=== PATIENT | male | born 1950 | race Caucasian/White ===

== ENCOUNTER 2017-03-29 18:41 | Observation (INO) | payer BC, OTHER ==
[~2017-03-29] VITALS: Ht 175.3 cm; Wt 73.6 kg
[~2017-03-29 18:41] MED LIST: ASPCH81X PO; CYAN100020 PO; MULT-506 PO; OMEG10007 PO
[2017-03-29 20:06] LABS: BASO % 0.3 %; BASO ABS # 0.02 K/uL (0-0.2); COMPLETE YES; HEMATOCRIT 38.7 % (42-52); IG% 0.3 %; LYMPH ABS # 1.97 K/uL (1.2-3.4); MEAN CELL VOLUME 92.1 fL (80-100); MEAN CORPUSCULAR HEMOGLOBIN 32.4 pg (25-34); MEAN CORPUSCULAR HGB CONC 35.1 g/dl (32-36); MONO % 8.2 %; NEUT % 58.2 %; PLATELET COUNT 285 K/uL (130-400); WHITE BLOOD COUNT 6.57 K/uL (4.8-10.8)
[2017-03-29] MEDS ORDERED: NUTR50CA PO (20:06)
[2017-03-29] MEDS ORDERED: CALC600T9 PO (20:06)
[2017-03-29 20:19] LABS: INR 0.9 (0.9-1.1); PROTHROMBIN TIME (PATIENT) 10.1 SECONDS (9.0-12.0)
--- NOTE | 2017-03-29 20:23 | DIAGNOSTIC IMAGING REPORT ---
CHEST 2 VIEWS ROUTINE CLINICAL HISTORY: CHEST PAIN THIS MORNING pain COMPARISON STUDY: 03/08/2015 FINDINGS: The bones soft tissues and hemidiaphragms are normal. The cardiomediastinal silhouette is normal. The lungs are clear. The pulmonary vasculature is normal. Mild emphysematous change. IMPRESSION: Negative chest. Mild chronic emphysematous change. The above report was generated using voice recognition software. It may contain grammatical, syntax or spelling errors. Electronically signed by: Isreal Brown M.D. 03/29/2017 8:22 PM Dictated Date/Time: 03/29/2017 8:21 PM
[2017-03-29 20:24] LABS: ALT/SGPT 21 U/L (12-78); BLOOD UREA NITROGEN 19 mg/dl (7-18); BUN/CREATININE RATIO 18.6 (10-20); CALCIUM 9.1 mg/dl (8.5-10.1); CARBON DIOXIDE 26 mmol/L (21-32); CHLORIDE 108 mmol/L (98-107); GLUCOSE 93 mg/dl (70-99); POTASSIUM 4.2 mmol/L (3.5-5.1); SODIUM 140 mmol/L (136-145)
[2017-03-29 20:27] LABS: ALB/GLOB RATIO 1.1 (0.9-2); ALKALINE PHOSPHATASE 81 U/L (45-117); AST/SGOT 17 U/L (15-37)
[2017-03-29] MEDS ORDERED: NITROGLYCERIN OINT 2% 1GM PACKET EXT ONE (20:45)
--- NOTE | 2017-03-29 21:01 | EMERGENCY ROOM VISIT NOTE ---
ED Visit Note First contact with patient: 19:49 I did evaluate and examine this patient myself. I did guide management for the patient. I agree with the APC's assessment as discussed. Please see the APC's dictation for further details. I did independently review the x-rays, 12-lead EKG and blood work. The patient is presenting with chest discomfort starting at 5 AM this morning. He stated that the pain lasted 2 hours and was not associated with any symptoms. He describes it as a burning sensation. While in the ED he develop chest discomfort which she describes as a pressure across his chest. He repeat EKG was obtained which was negative for acute ischemic changes. He was given nitroglycerin paste and his chest pressure did resolve. I did recommend hospitalization for repeat cardiac enzymes and further evaluation.
--- NOTE | 2017-03-29 22:11 | EMERGENCY ROOM VISIT NOTE ---
History First contact with patient: 19:15 Chief Complaint: CARDIAC ASSESSMENT Stated Complaint: CHEST PAIN Nursing Triage Summary: Pt states he had a 2 hour episode of chest pain this AM, denies pain at this time, pt a/ox3, lungs CTA abd positive BS, positive pulses. History of Present Illness Patient is a healthy 66-year-old white male who presents to the emergency department by his for evaluation of an episode of chest pain that occurred earlier this morning. Patient reports that he had been feeling well and was in his usual state of health yesterday. He reports that he was up late writing, and did have a late snack, and then did multiple pushups just immediately prior to going to bed. He states that he was woken from sleep at 0 500 with a burning pain across his entire anterior chest. He denies any radiation of the pain. He states that it felt like his chest was on fire." It was initially very intense. He states that it worsened when he laid on his side. The burning pain and then tapered off and he was still left with an aching sensation which at its worst she would've rated it a 7/10. He denied any associated headache, lightheadedness or dizziness, shortness of breath, cough or sputum production, abdominal pain, nausea, vomiting, indigestion or diaphoresis. He states that the pain lasted him for about an hour, at which point he took ibuprofen and a homeopathic indigestion medication. Afterwards, he states that the symptoms subsided and he will fell back asleep for several hours. He woke up at 11:30 and felt essentially back to normal. He still stated that he still had some left-sided "residue" which he describes as pressure. He went about his normal day. He did feel little bit fatigued and took a nap in the afternoon. He later called the [facility], and they encouraged him to be seen in the emergency department. At the present time he is completely pain-free. He has never had symptoms similar to this previously. He has never had any type of cardiac workup. He states that he frequently does pushups prior to going to bed. He takes a full strength aspirin daily, otherwise a handful of vitamins. He denies any history of hypertension, heart disease, diabetes or dyslipidemia. He's not had any surgeries. He has smoked a pipe daily for 35 years. He denies any family history of cardiac disease. Review of Systems Review of systems as per HPI. All other systems reviewed were negative. 10 systems reviewed. Past Medical/Surgical History Medical Problems: (1) No Known Active Medical Problems Electronic medical records are reviewed and summarized as above/below. See Problem List. Social History Smoking Status: Current Every Day Smoker Marital Status: Housing Status: lives with significant other Occupation Status: retired Current/Historical Medications Scheduled Aspirin (Aspirin Chewable), 81 MG PO DAILY Calcium Carbonate-Vitamin D (Calcium + D), 1 TAB PO BID Cyanocobalamin (Vitamin B12), 1 TAB PO DAILY Multivitamin (Multivitamin), 1 TAB PO DAILY Nutritional Supplements (Dhea), 1 CAP PO DAILY Physical Exam Vital Signs Date Time Temp Pulse Resp B/P (MAP) Pulse Ox O2 Delivery O2 Flow Rate FiO2 03/29/17 20:41 59 18 102/70 96 Room Air 03/29/17 20:11 65 03/29/17 19:58 99 Room Air 03/29/17 18:45 36.7 70 18 101/65 96 Room Air Physical Exam CONSTITUTIONAL: Patient is a pleasant, well-appearing 66-year-old white male who was awake and alert and sitting on the gurney in no acute distress. EYES: Pupils equal, round, reactive to light and accommodation. EOMs intact without nystagmus. Sclera are anicteric. ENT: Tympanic membranes intact, with normal landmarks. External canals are clear. Oral and nasopharynx are clear. Mucous membranes are moist, no lesions , tongue and gums appear normal. NECK: No bruits auscultated. Supple without lymphadenopathy. No thyromegaly. No meningeal signs. Full active range of motion without discomfort. CARDIOVASCULAR: Regular rate and rhythm, with normal S1 and S2, no murmur or gallop or rub is heard. No carotid bruits auscultated. No JVD. Peripheral pulses easily palpable. RESPIRATORY: Breath sounds equal and clear to auscultation without wheezes, rales, or rhonchi heard. Full and equal chest expansion without accessory muscle use or retractions. ABDOMEN: Bowel sounds are present. Abdomen is soft, nontender and nondistended. No guarding or rebound. INTEGUMENTARY: No lesions or rash, normal skin turgor. LYMPH: No lymphadenopathy. Medical Decision & Procedures ER Provider Diagnostic Interpretation: CHEST 2 VIEWS ROUTINE CLINICAL HISTORY: CHEST PAIN THIS MORNING pain COMPARISON STUDY: 03/08/2015 FINDINGS: The bones soft tissues and hemidiaphragms are normal. The cardiomediastinal silhouette is normal. The lungs are clear. The pulmonary vasculature is normal. Mild emphysematous change. IMPRESSION: Negative chest. Mild chronic emphysematous change. Laboratory Results 03/29/17 19:55 Red Blood Count 4.20, Mean Corpuscular Volume 92.1, Mean Corpuscular Hemoglobin 32.4, Mean Corpuscular Hemoglobin Concent 35.1, Mean Platelet Volume 9.0, Neutrophils (%) (Auto) 58.2, Lymphocytes (%) (Auto) 30.0, Monocytes (%) (Auto) 8.2, Eosinophils (%) (Auto) 3.0, Basophils (%) (Auto) 0.3, Neutrophils # (Auto) 3.82, Lymphocytes # (Auto) 1.97, Monocytes # (Auto) 0.54, Eosinophils # (Auto) 0.20, Basophils # (Auto) 0.02 03/29/17 19:55 Test 03/29/17 19:55 White Blood Count 6.57 K/uL (4.8-10.8) Red Blood Count 4.20 M/uL (4.7-6.1) Hemoglobin 13.6 g/dL (14.0-18.0) Hematocrit 38.7 % (42-52) Mean Corpuscular Volume 92.1 fL (80-100) Mean Corpuscular Hemoglobin 32.4 pg (25-34) Mean Corpuscular Hemoglobin Concent 35.1 g/dl (32-36) Platelet Count 285 K/uL (130-400) Mean Platelet Volume 9.0 fL (7.4-10.4) Neutrophils (%) (Auto) 58.2 % Lymphocytes (%) (Auto) 30.0 % Monocytes (%) (Auto) 8.2 % Eosinophils (%) (Auto) 3.0 % Basophils (%) (Auto) 0.3 % Neutrophils # (Auto) 3.82 K/uL (1.4-6.5) Lymphocytes # (Auto) 1.97 K/uL (1.2-3.4) Monocytes # (Auto) 0.54 K/uL (0.11-0.59) Eosinophils # (Auto) 0.20 K/uL (0-0.5) Basophils # (Auto) 0.02 K/uL (0-0.2) RDW Standard Deviation 42.3 fL (36.4-46.3) RDW Coefficient of Variation 12.5 % (11.5-14.5) Immature Granulocyte % (Auto) 0.3 % Immature Granulocyte # (Auto) 0.02 K/uL (0.00-0.02) Prothrombin Time 10.1 SECONDS (9.0-12.0) Prothromb Time International Ratio 0.9 (0.9-1.1) Activated Partial Thromboplast Time 26.6 SECONDS (21.0-31.0) Partial Thromboplastin Ratio 1.0 Anion Gap 6.0 mmol/L (3-11) Est Creatinine Clear Calc Drug Dose 73.7 ml/min Estimated GFR () 91.1 Estimated GFR (Non- 78.6 BUN/Creatinine Ratio 18.6 (10-20) Calcium Level 9.1 mg/dl (8.5-10.1) Total Bilirubin 0.3 mg/dl (0.2-1) Aspartate Amino Transf (AST/SGOT) 17 U/L (15-37) Alanine Aminotransferase (ALT/SGPT) 21 U/L (12-78) Alkaline Phosphatase 81 U/L (45-117) Total Creatine Kinase 43 U/L (39-308) Creatine Kinase MB < 0.5 ng/ml (0.5-3.6) Creatine Kinase MB Ratio (0-3.0) Troponin I < 0.015 ng/ml (0-0.045) Total Protein 7.2 gm/dl (6.4-8.2) Albumin 3.7 gm/dl (3.4-5.0) Globulin 3.5 gm/dl (2.5-4.0) Albumin/Globulin Ratio 1.1 (0.9-2) Medications Administered Medications (Trade) Dose Ordered Sig/Yudith Route Start Time Stop Time Status Last Admin Dose Admin Nitroglycerin (Nitroglycerin 2% Oint) 0.5 inch NOW ONCE EXT 03/29/17 20:45 03/29/17 20:46 DC 03/29/17 20:45 0.5 INCH ECG Indication: chest pain Rate (beats per minute): 65 Rhythm: normal sinus Findings: no acute ischemic change, no ectopy Change: no significant change ED Course The patient was seen and assessed as above. His old records were reviewed. History and presentation were reviewed with attending physician, who also independently evaluated the patient. He declined any medication for his symptoms after initial evaluation. EKG was performed and was as noted above. IV lock was initiated and laboratory studies were collected. Chest x-ray was performed. Laboratory studies noted a normal white count at 6500, H&H 13.6 and 38.7, platelet count 285,000. PTT/INR/PTT are within normal limits. Electrolytes are within normal limits. Renal function is not elevated. Liver functions are unremarkable. Cardiac enzymes are negative 1. Patient was evaluated by attending physician, Dr. Hidalgo. Please refer to his note. Patient reported to Dr. Hidalgo that he had begun to experience some left sided chest pressure that he described as a sandbag sitting on his chest. Repeat EKG was obtained, and was unchanged. 1/2 inch of Nitropaste was applied , with relief of his pain. Given this, it was felt that admission/observation was warranted for further cardiac evaluation. This was discussed with the patient and he expressed understanding. Patient was discussed with Dr. Gilmore with the [facility]. Differential diagnosis includes acute myocardial infarction, acute coronary syndrome, myocarditis, pericarditis, pneumonia, pneumothorax, cardiomyopathy, congestive heart failure, anemia , COPD exacerbation, GERD, peptic ulcer disease , gastritis, musculoskeletal, anxiety, costochondritis, among others. Medical Decision See ED Course. Medication Reconcilliation Current Medication List: was personally reviewed by wv Blood Pressure Screening Patient's blood pressure: Low blood pressure Blood pressure disposition: Did not require urgent referral Impression Primary Impression: Substernal precordial chest pain Departure Information Referrals Balwinder Philippe D.O. (PCP) Patient Instructions [facility]
[2017-03-29] MEDS ORDERED: ONDANSETRON INJ 2 MG/ML 2 ML VIAL IV PRN (22:30)
[2017-03-29] MEDS ORDERED: MAGNESIUM HYDROXIDE SUSP 30 ML UDC PO PRN (22:30)
[2017-03-29] MEDS ORDERED: ZOLPIDEM TARTRATE 5 MG TAB PO PRN (22:30)
[2017-03-29] MEDS ORDERED: ALUMINUM/MAGNESIUM/SIMETH (MAALOX MAX) 30 ML UDC PO PRN (22:30)
[2017-03-29] MEDS ORDERED: POLYETHYLENE (MIRALAX) 17 GM PACK PO PRN (22:30)
[2017-03-29] MEDS ORDERED: NITROGLYCERIN 0.4 MG SL PER TAB CHARGE SL PRN (22:30)
[2017-03-29] MEDS ORDERED: ACETAMINOPHEN 325 MG TAB PO PRN (22:30)
[2017-03-29] MEDS ORDERED: MoRPHine SULFATE 2 MG/ML CARP IV PRN (22:30)
--- NOTE | 2017-03-29 22:35 | History and Physical ---
History & Physical Date & Time of Service: Mar 29, 2017 at 22:24 Chief Complaint: Chest Pain Primary Care Physician: Balwinder Philippe D.O. History of Present Illness Source: patient 66 y/o M smoker with no additional significant medical history. Pt woke up at 5am with pain across the top of his chest. He denies associated SOB, N/V, diaphoresis or lightheadedness. The pain did not radiate and was moderate to severe initially. He states the pain lasted one hour, however, a degree of discomfort remained throughout the day. He presented to the ER where he gained relief from a single dose of NTG. Past Medical/Surgical History Pipe smoker Family History Denies a family history of heart disease Social History The pt states he basically chain smokes a pipe - he drinks alcohol in moderation Recently retired from [employer] at [employer] Smoking Status: Current Every Day Smoker Marital Status: Occupational Status: retired Multi-Drug Resistant Organisms History of MDRO: No Allergies Coded Allergies: No Known Allergies (Unverified , 03/29/17) Home Medications Scheduled Aspirin (Aspirin Chewable), 81 MG PO DAILY Calcium Carbonate-Vitamin D (Calcium + D), 1 TAB PO BID Cyanocobalamin (Vitamin B12), 1 TAB PO DAILY Multivitamin (Multivitamin), 1 TAB PO DAILY Nutritional Supplements (Dhea), 1 CAP PO DAILY Review of Systems Constitutional: No fever, No chills, No sweats Eyes: No worsening of vision ENT: No hearing loss, No unusual epistaxis, No nasal symptoms Respiratory: No cough, No sputum, No wheezing Cardiovascular: + chest pain, No orthopnea, No PND Abdomen: No pain, No nausea, No vomiting Musculoskeletal: No joint pain Genitourinary - Male: No hematuria, No dysuria Neurologic: No memory loss, No paralysis, No weakness Psychiatric: No depression symptoms Endocrine: No fatigue Hematologic / Lymphatic: No abnormal bleeding/bruising Integumentary: No rash Allergic / Immunologic: No environmental allergies Physical Exam Vital Signs Date Time Temp Pulse Resp B/P (MAP) Pulse Ox O2 Delivery O2 Flow Rate FiO2 03/29/17 20:41 59 18 102/70 96 Room Air 03/29/17 20:11 65 03/29/17 19:58 99 Room Air 03/29/17 18:45 36.7 70 18 101/65 96 Room Air General Appearance: WD/WN, no apparent distress, + thin Head: normocephalic Eyes: normal inspection ENT: normal ENT inspection Neck: supple, no adenopathy Respiratory/Chest: chest non-tender, lungs clear, normal breath sounds Cardiovascular: regular rate, rhythm, no edema, no gallop, no JVD, no murmur, normal peripheral pulses Abdomen/GI: normal bowel sounds, non tender, soft Back: normal inspection, no CVA tenderness Extremities/Musculoskelatal: normal inspection, no calf tenderness, normal capillary refill, no pedal edema, normal range of motion 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, no motor/sensory deficits, alert, normal mood/affect, normal reflexes, oriented x 3 Skin: normal color, warm/dry, no rash Diagnostics Laboratory Results Results Past 24 Hours Test 03/29/17 19:38 03/29/17 19:55 Range/Units Creatine Kinase MB Ratio 0-3.0 White Blood Count 6.57 4.8-10.8 K/uL Red Blood Count 4.20 4.7-6.1 M/uL Hemoglobin 13.6 14.0-18.0 g/dL Hematocrit 38.7 42-52 % Mean Corpuscular Volume 92.1 80-100 fL Mean Corpuscular Hemoglobin 32.4 25-34 pg Mean Corpuscular Hemoglobin Concent 35.1 32-36 g/dl Platelet Count 285 130-400 K/uL Mean Platelet Volume 9.0 7.4-10.4 fL Neutrophils (%) (Auto) 58.2 % Lymphocytes (%) (Auto) 30.0 % Monocytes (%) (Auto) 8.2 % Eosinophils (%) (Auto) 3.0 % Basophils (%) (Auto) 0.3 % Neutrophils # (Auto) 3.82 1.4-6.5 K/uL Lymphocytes # (Auto) 1.97 1.2-3.4 K/uL Monocytes # (Auto) 0.54 0.11-0.59 K/uL Eosinophils # (Auto) 0.20 0-0.5 K/uL Basophils # (Auto) 0.02 0-0.2 K/uL RDW Standard Deviation 42.3 36.4-46.3 fL RDW Coefficient of Variation 12.5 11.5-14.5 % Immature Granulocyte % (Auto) 0.3 % Immature Granulocyte # (Auto) 0.02 0.00-0.02 K/uL Prothrombin Time 10.1 9.0-12.0 SECONDS Prothromb Time International Ratio 0.9 0.9-1.1 Activated Partial Thromboplast Time 26.6 21.0-31.0 SECONDS Partial Thromboplastin Ratio 1.0 Sodium Level 140 136-145 mmol/L Potassium Level 4.2 3.5-5.1 mmol/L Chloride Level 108 98-107 mmol/L Carbon Dioxide Level 26 21-32 mmol/L Anion Gap 6.0 3-11 mmol/L Blood Urea Nitrogen 19 7-18 mg/dl Creatinine 1.00 0.60-1.40 mg/dl Est Creatinine Clear Calc Drug Dose 73.7 ml/min Estimated GFR () 91.1 Estimated GFR (Non- 78.6 BUN/Creatinine Ratio 18.6 10-20 Random Glucose 93 70-99 mg/dl Calcium Level 9.1 8.5-10.1 mg/dl Total Bilirubin 0.3 0.2-1 mg/dl Aspartate Amino Transf (AST/SGOT) 17 15-37 U/L Alanine Aminotransferase (ALT/SGPT) 21 12-78 U/L Alkaline Phosphatase 81 45-117 U/L Total Creatine Kinase 43 39-308 U/L Creatine Kinase MB < 0.5 0.5-3.6 ng/ml Troponin I < 0.015 0-0.045 ng/ml Total Protein 7.2 6.4-8.2 gm/dl Albumin 3.7 3.4-5.0 gm/dl Globulin 3.5 2.5-4.0 gm/dl Albumin/Globulin Ratio 1.1 0.9-2 Normal EKG Impression Assessment and Plan 66 y/o M smoker with no additional significant medical history. Pt woke up at 5am with pain across the top of his chest. He denies associated SOB, N/V, diaphoresis or lightheadedness. The pain did not radiate and was moderate to severe initially. He states the pain lasted one hour, however, a degree of discomfort remained throughout the day. He presented to the ER where he gained relief from a single dose of NTG. 1) CP - Low probability based on risk factors, however, the pt is an avid smoker. We will observe on telemetry overnight and obtain serial enzymes. An AM fasting lipid profile is ordered. He should be referred for outpt stress testing upon discharge if his enzymes prove negative. 2) Pt advised on smoking cessation. ZFull code - Heparin prophylaxis - total time for this admit including review of labs, meds, EKG - discussion with pt and ER attending - 30 min VTE Prophylaxis VTE Risk Assessment Done? Y/N: Yes Risk Level: Low
[2017-03-30] VITALS (9 sets, daily range): BP systolic 83–111; BP diastolic 44–65; PULSE 56–78; TEMP 36.4–36.9; O2SAT 95–97; Ht 175.3 cm; Wt 73.6 kg
[2017-03-30] MEDS: HEPARIN SOD 5000 UNIT/0.5 ML CARP SQ SCH ×2 (05:56→14:00)
--- NOTE | 2017-03-30 07:05 | Family Medicine Progress Note ---
Progress Note Date of Service Mar 30, 2017.
[2017-03-30 07:56] LABS: CHOLESTEROL/HDL RATIO 4.7
[2017-03-30] MEDS ORDERED: INFLUENZA ADMINISTRATION CHARGE ONE (08:00)
[2017-03-30] MEDS ORDERED: INFLUENZA VACCINE HIGH DOSE 65+ 0.5 ML SYR IM. ONE (08:00)
[2017-03-30] MEDS ORDERED: PNEUMOCOCCAL POLYSACCHARIDES 25 MCG/0.5 ML VIAL/SYR IM. ONE (08:00)
[2017-03-30] MEDS ORDERED: PNEUMOCOCCAL ADMINISTRATION CHARGE ONE (08:00)
[2017-03-30] MEDS ORDERED: CYANOCOBALAMIN 500 MCG TAB (VIT B-12) PO SCH (09:00)
[2017-03-30] MEDS ORDERED: ASPIRIN 81 MG ECTAB PO SCH (09:00)
[2017-03-30] MEDS ORDERED: SODIUM CHLORIDE 0.9% 1000ML 1,000 ML IV SCH (09:30)
--- NOTE | 2017-03-30 13:17 | EXERCISE STRESS ECHO ---
*NOTICE TO RECEIVING [employer] This information is strictly Confidential and protected under [place] law. [place] law prohibits you from making any further disclosure of this information unless further disclosure is expressly permitted by the written consent of the person to whom it pertains or is authorized by law. A general authorization for the release of medical or other information is not sufficient for this purpose. Hospital accepts no responsibility if the information is made available to any other person, INCLUDING THE PATIENT. Interpretation Summary * Name: EDITH BONILLA Study Date: 03/30/2017 11:10 AM BP: 94/58 mmHg * Patient Location: [facility]\\S\\[id number]\\S\\[id number] HR: 57 * : 1950 (M/d/yyyy) Gender: Male Height: 69 in * Age: 66 yrs Ethnicity: CA Weight: 162 lb * Ordering Physician: Hossein Rivera * Referring Physician: Self, Referred * Performed By: Jadyn Hawkins RCS * * Reason For Study: Chest Pain * BSA: 1.9 m2 * -- Conclusions -- * Left ventricular systolic function is normal. * Normal diastolic function * Right ventricular systolic pressure is normal. * Slightly sub maximal exercise echocardiogram without definite evidence of inducible ischemia * Low risk study Procedure Details * ECHOEX, CPT #[id number] * ECHO COLOR FLOW, CPT #[id number] * ECHO DOPPLER, CPT #[id number] Left Ventricular Findings with Stress * Slightly sub maximal exercise echocardiogram without definite evidence of inducible ischemia Low risk study Left Ventricle * The left ventricle is normal in size. * There is normal left ventricular wall thickness. * Ejection Fraction = 60-65%. * Left ventricular systolic function is normal. * Normal diastolic function * The left ventricular wall motion is normal. Right Ventricle * The right ventricle is grossly normal size. * The right ventricular systolic function is normal. Atria * The left atrial size is normal. * Right atrial size is normal. Mitral Valve * The mitral valve anatomy is normal. * There is no mitral regurgitation noted. Tricuspid Valve * The tricuspid valve anatomy is normal. * There is trace tricuspid regurgitation. * Right ventricular systolic pressure is normal. Aortic Valve * The aortic valve is normal in structure and function. * The aortic valve is trileaflet. * No hemodynamically significant valvular aortic stenosis. * There is no significant aortic regurgitation. Great Vessels * The aortic root is normal size. Pericardium * There is no pericardial effusion. Stress Parameters * Normal baseline electrocardiogram. * The significant artifact with the exercise recording. There were no definite ST or T-wave changes with exercise or recovery * The stress portion of this study was personally supervised by the undersigned interpreting physician. * Rest heart rate was '57' BPM. * Rest blood pressure was '94/58' * Maximum heart rate achieved was 129 bpm. * Maximum heart rate was 83 % of maximum age-predicted heart rate. * Maximum blood pressure was '138/51' * Total exercise time was '5:41' * Maximum exercise MET level achieved was '7.0' METS * Maximum treadmill speed was '2.5' miles per hour. * Maximum treadmill elevation was '12'% grade. * Exercise was terminated due to 'patient unable to walk any longer' * Normal blood pressure response to exercise. Left Ventricular Findings with Stress * Baseline EKG was normal With exercise there was significant artifact but no definite ST segment changes Baseline echocardiogram was normal There was normal augmentation of all johns with exercise. No inducible wall motion abnormalities Normal heart rate and blood pressure response to exercise Exercise was stopped due to symptoms of "disorientation" There was no chest pain during exercise MMode 2D Measurements and Calculations IVSd 10 cm IVSs 1.2 cm LVIDd 4.4 cm LVIDs 3.0 cm LVPWd 10 cm LVPWs 1.2 cm IVS/LVPW 1.0 FS 31.8 % EDV(Teich) 88.5 ml ESV(Teich) 35.3 ml EF(Teich) 60.1 % EDV(cubed) 86.2 ml ESV(cubed) 27.3 ml EF(cubed) 68.3 % % IVS thick 16.6 % % LVPW thick 20.6 % LV mass(C)d 148.2 grams LV mass(C)dI 78.4 grams/m\\S\\2 LV mass(C)s 107.2 grams LV mass(C)sI 56.8 grams/m\\S\\2 SV(Teich) 53.1 ml SI(Teich) 28.1 ml/m\\S\\2 SV(cubed) 58.8 ml SI(cubed) 31.1 ml/m\\S\\2 Ao root diam 3.8 cm Ao root area 11.0 cm\\S\\2 ACS 2.3 cm LA dimension 3.3 cm asc Aorta Diam 3.0 cm LA/Ao 0.87 EDV(MOD-sp4) 64.6 ml ESV(MOD-sp4) 21.5 ml EF(MOD-sp4) 66.8 % EDV(MOD-sp2) 72.7 ml ESV(MOD-sp2) 24.1 ml EF(MOD-sp2) 66.8 % SV(MOD-sp4) 43.1 ml SI(MOD-sp4) 22.8 ml/m\\S\\2 SV(MOD-sp2) 48.6 ml SI(MOD-sp2) 25.7 ml/m\\S\\2 Doppler Measurements and Calculations MV E max lauryn 78.9 cm/sec MV A max lauryn 51.8 cm/sec MV E/A 1.5 MV P1/2t max lauryn 84.9 cm/sec MV P1/2t 88.4 msec MVA(P1/2t) 2.5 cm\\S\\2 MV dec slope 281.5 cm/sec\\S\\2 MV dec time 0.27 sec Ao V2 max 86.3 cm/sec Ao max PG 3.0 mmHg Ao max PG (full) 0.78 mmHg LV V1 max PG 2.2 mmHg LV V1 max 74.2 cm/sec PA V2 max 104.8 cm/sec PA max PG 4.4 mmHg TR max lauryn 198.4 cm/sec
--- NOTE | 2017-03-30 14:27 | Discharge Instructions ---
Discharge Instructions Date of Service Mar 30, 2017. Admission Reason for Admission: Substernal Precordial Chest Pain Discharge Discharge Diagnosis / Problem: Chest Pain of Unknown Origin Discharge Goals Goal(s): Decrease discomfort, Improve function, Increase independence, Improve disease control, Improve nutritional status, Learn about illness, Diagnostic testing Activity Recommendations Activity Limitations: per Instructions/Follow-up section . Instructions / Follow-Up Instructions / Follow-Up You were admitted to the hospital to rule out a serious cardiac cause of your chest pain. While in the hospital our blood tests, electrocardiac monitoring and echocardiogram tests were normal for your heart. We recommend following up with your primary care provider in one week. A document outlining potential other causes for the chest discomfort will be attached to your discharge packet. They include Respiratory, Musculoskeletal and Gastrointestinal causes. You may wish to consider an over the counter heartburn medication such as Ranitidine or Omeprazole for heart burn. Please continue to exercise and eat a health diet. We also recommend stopping all tobacco containing products. Current Hospital Diet Patient's current hospital diet: AHA Diet (Heart Healthy) Discharge Diet Recommended Diet: AHA Diet (Heart Healthy) Pending Studies Studies pending at discharge: no Laboratory Results Lipid Panel Test 03/30/17 04:45 Range/Units Triglycerides Level 130 0-150 mg/dl Cholesterol Level 155 0-200 mg/dl HDL Cholesterol 33 mg/dl Cholesterol/HDL Ratio 4.7 LDL Cholesterol, Calculated 96 mg/dl Medical Emergencies . Who to Call and When: Medical Emergencies: If at any time you feel your situation is an emergency, please call 911 immediately. . Non-Emergent Contact Non-Emergency issues call your: Primary Care Provider . . "Provider Documentation" section prepared by Isreal Huizar. . VTE Core Measure Inpt VTE Proph given/why not?: Unfractionated heparin SQ Resident Involvement: Resident Care Provided Care Provided: Adult Hospital Medicine
--- NOTE | 2017-03-30 14:45 | Discharge Summary ---
Discharge Summary Date of Service Mar 30, 2017. Discharge Summary Admission Date: Mar 29, 2017 at 22:21 Discharge Date: Mar 30, 2017 Discharge Disposition: Home Principal Diagnosis: Chest pain of unknown origin Procedures: EXERCISE ECHOCARDIOGRAM * Left ventricular systolic function is normal. * Normal diastolic function * Right ventricular systolic pressure is normal. * Slightly sub maximal exercise echocardiogram without definite evidence of inducible ischemia * Low risk study CHEST 2 VIEWS ROUTINE CLINICAL HISTORY: CHEST PAIN THIS MORNING pain COMPARISON STUDY: 03/08/2015 FINDINGS: The bones soft tissues and hemidiaphragms are normal. The cardiomediastinal silhouette is normal. The lungs are clear. The pulmonary vasculature is normal. Mild emphysematous change. IMPRESSION: Negative chest. Mild chronic emphysematous change. Medication Reconciliation Continued Medications: Aspirin (Aspirin Chewable) 81 Mg Chew 81 MG PO DAILY Calcium Carbonate-Vitamin D (Calcium + D) 1 Tab Tab 1 TAB PO BID Cyanocobalamin (Vitamin B12) 1,000 Mcg Tab 1 TAB PO DAILY Multivitamin (Multivitamin) Tab 1 TAB PO DAILY, TAB Nutritional Supplements (Dhea) 1 Cap Cap 1 CAP PO DAILY Discharge Exam Subjective Pt was seen and examined at bedside. Tele showed sinus rhythm in the 60s and 70s. Pt states that his chest pain has long resolved, and he has no acute issues. Plan is for an exercise stress today today. Plan was described to patients and all questions were answered. ROS: No chest pain, no SOB, no dyspnea on exertion, no palpitations, no fevers, no chills, no nausea, no vomiting, no diarrhea, no dysuria, no rash. 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 His initial EKG was normal and his troponins were negative x 3. Patient leads a healthy lifestyle and only risk factors for CAD are smoking tobacco products, his sex (male) and age, 66. Pt was admitted to [facility] where he had a sinus rhythm in the 60s and 70s. Patient underwent an exercise stress test that was grossly normal. Patient was discharged in good condition. The etiology of the chest pain is unknown although from the history (occurring while asleep, he had 9 cookies right before bed in the setting of not normally eating before night) suggest that the chest pain was more GERD-like. Patient also described the chest pain as a "burning" sensation. Patient was advised to try over the counter Ranitidine or Omeprazole if his symptoms becomes persistent and chronic. Return to the ER instructions such as experiencing shortness of breath, crushing chest pain and syncope were reviewed with the patient. Pt was also advised to quit smoking. PCP follow up in one week was recommended. Patient was discharged in good condition. Total Time Spent: Greater than 30 minutes (44minutes) This includes examination of the patient, discharge planning, medication reconciliation, and communication with other providers. Discharge Instructions Please refer to the electronic Patient Visit Report (Discharge Instructions) for additional information. Follow-Up Follow up with PCP in one week. Additional Copies To Balwinder Philippe D.O. Resident Involvement: Resident Care Provided Care Provided: [facility]
== END 2017-03-30 16:30 | disposition home or self-care (01) ==
LOC: C.EDB 18:43 → UNDOADMOB 22:21 → C.MED 22:21 → ENRESERV 22:45 → CANRESERV 22:45 → ENRESERV 23:10
PROVIDERS: ADMIT Internal Medicine; ATTEND Hospitalist
DX: R07.9 Chest pain, unspecified (principal); F17.200 Nicotine dependence, unspecified, uncomplicated; Z79.82 Long term (current) use of aspirin